=== PATIENT | female | born 1955 | race Caucasian/White ===

== ENCOUNTER 2018-08-15 08:17 | Emergency (ER) | payer OTHER ==
[~2018-08-15] VITALS: Ht 160 cm; Wt 98.4 kg
[~2018-08-15 08:17] MED LIST: ALBU0.0912 IH; ASPI81TA PO; ATEN100T6 PO; HYDR25TA32 PO; IBUP-2213 PO; IPRA14.7 INH; LISI-420 PO
[2018-08-15 08:20] VITALS: BP 124/65
--- NOTE | 2018-08-15 08:28 | NUR ---
63 Y FEMALE BIB SELF C/O RIGHT ANKLE PAIN 9/10 X3 DAYS. PT STATES SHE WOKE UP WITH A SHARP PAIN. +CMS. +ROM. HAD A STENT PLACED TEN DAYS AGO. PT STATES THEY TOOK HER OFF OF HER DIURETICS. BILATERAL EDEMA IN LOWER EXTREMETIES, NON-PITTING. VSS AT THIS TIME. PT [id number]. BED IS DOWN, LOCKED, BED RAIL X 1, ERMD TO SEE PT. HX OF HTN, CARDIAC BIPAP SURGERY.
--- NOTE | 2018-08-15 08:30 | NUR ---
Dr Carlin evaluating pt at bedside.
[2018-08-15] MEDS ORDERED: predniSONE 20 MG TAB PO ONE (08:35)
[2018-08-15] MEDS ORDERED: traMADol 50 MG TAB PO ONE (08:35)
--- NOTE | 2018-08-15 08:37 | NUR ---
XRAY AT BEDSIDE
--- NOTE | 2018-08-15 09:21 | NUR ---
RT ANKLE SPLINT APPLIED BY ERIKA MATIAS. PT VERBALIZES UNDERSTANING OF USE. +CAP REFILL < 3 SECONDS.
[2018-08-15 10:21] VITALS: BP 164/112
--- NOTE | 2018-08-15 10:21 | NUR ---
Patient discharged with v/s stable. Written and verbal after care instructions given and explained. Patient alert, oriented and verbalized understanding of instructions. Ambulatory with steady gait. All questions addressed prior to discharge. ID band removed. Patient advised to follow up with PMD. Rx of VOLTAREN given. Patient educated on indication of medication including possible reaction and side effects. Opportunity to ask questions provided and answered. PATIENT INSTRUCTED TO REST, ICE, COMPRESSION AND ELEVATE SPRAINED RT ANKLE. PT INSTRUCTED SHE CAN RETURN TO HER PHYSICAL THERAPY WITH MINIMAL PRESSURE ON RT ANKLE, AND WITHIN PTS COMFORT ZONE. PT INSTRUCTED TO TAKE VOLTAREN WITH A MEAL. PT TO FOLLOW UP WITH CREDIT OR LOANS OFFICER IF SYMTPOMS WORSEN. PT VERBALIZED UNDERSTANING.
== END 2018-08-15 10:21 | disposition home or self-care (01) ==
LOC: MED 08:17
DX: M21.611 Bunion of right foot (principal); M72.2 Plantar fascial fibromatosis; J44.9 Chronic obstructive pulmonary disease, unspecified; I10 Essential (primary) hypertension; Z87.891 Personal history of nicotine dependence; Z95.1 Presence of aortocoronary bypass graft; Z79.82 Long term (current) use of aspirin; Z79.1 Long term (current) use of non-steroidal anti-inflammatories (NSAID); Z79.899 Other long term (current) drug therapy; Z88.1 Allergy status to other antibiotic agents
CPT/HCPCS: 73630; 99283; J7512; Q0092